=== PATIENT | female | born 1960 | race Caucasian/White ===

== ENCOUNTER 2019-04-04 12:04 | Day surgery (SDC) | payer MEDICARE ==
[2019-04-04] MEDS ORDERED: Marcaine 0.5% SDV 10 ML IJ ONE (12:05)
[2019-04-04] MEDS ORDERED: Depo-Medrol 40 MG/ML IM ONE (12:05)
[2019-04-04] MEDS ORDERED: DIPRIVAN 200 MG/20 ML IV ONE (13:01)
[2019-04-04] MEDS ORDERED: Ketamine HCl 50 MG/ML ONE (13:01)
[2019-04-04] MEDS ORDERED: Lactated Ringers 1,000 ML IV ONE (13:46)
--- NOTE | 2019-04-04 14:49 | XRAY ---
Indication: Right greater trochanter injection. Intraoperative fluoroscopy was provided for 12 seconds. Single digital spot image submitted for interpretation demonstrates needle tip projecting just lateral to the right greater trochanter. Small amount of contrast injected for needle tip placement. Correlate with intraoperative findings/report.
--- NOTE | 2019-04-04 14:52 | XRAY ---
Indication: Left greater trochanter injection. Intraoperative fluoroscopy was provided for 75 seconds. Single digital spot image submitted for interpretation demonstrates needle tip projecting just lateral to the left greater trochanter. Small amount of contrast injected for needle tip placement. Correlate with intraoperative findings/report.
--- NOTE | 2019-04-04 14:52 | XRAY ---
12 seconds fluoroscopy time in surgery right greater trochanter injection.
--- NOTE | 2019-04-04 14:52 | XRAY ---
75 seconds fluoroscopy time in surgery for left greater trochanter injection.
== END 2019-04-04 13:22 | disposition home or self-care (01) ==
LOC: SDC-PAIN 12:04
PROVIDERS: ATTEND Psychiatry & Neurology Pain Medicine
DX: M70.62 Trochanteric bursitis, left hip (principal); M70.61 Trochanteric bursitis, right hip; G47.30 Sleep apnea, unspecified; K44.9 Diaphragmatic hernia without obstruction or gangrene; Q24.9 Congenital malformation of heart, unspecified; F32.9 Major depressive disorder, single episode, unspecified; Z79.899 Other long term (current) drug therapy
CPT/HCPCS: 20610; 73501; 77002; J1030; J2704; Q9966

== ENCOUNTER 2019-10-03 11:16 | Day surgery (SDC) | payer MEDICARE ==
[2019-10-03] MEDS ORDERED: Depo-Medrol 40 MG/ML IM ONE (11:17)
[2019-10-03] MEDS ORDERED: Xylocaine 1% Vial 30 ML PF IJ ONE (11:17)
[2019-10-03] MEDS ORDERED: Marcaine 0.5% SDV 10 ML IJ ONE (11:17)
[2019-10-03] MEDS ORDERED: Decadron 4 MG INJ IV ONE (11:17)
[2019-10-03] MEDS ORDERED: Ketamine HCl 50 MG/ML ONE (12:22)
[2019-10-03] MEDS ORDERED: DIPRIVAN 200 MG/20 ML IV ONE (12:22)
[2019-10-03] MEDS ORDERED: TORAdol 30 mg Injection ONE (12:36)
[2019-10-03] MEDS ORDERED: Lactated Ringers 1,000 ML IV ONE (13:11)
--- NOTE | 2019-10-03 13:29 | XRAY ---
Indication: Right piriformis muscle and greater trochanter injection. Intraoperative fluoroscopy was provided for 25 seconds. 3 digital spot images submitted for interpretation demonstrate posterior needle tip projecting over the expected right piriformis muscle and a second needle tip adjacent to the right greater trochanter. Small amount of contrast injected for both needle tip placement. Correlate with intraoperative findings/report.
--- NOTE | 2019-10-03 13:43 | XRAY ---
25 seconds fluoroscopy time in surgery for right piriformis muscle and greater trochanter injections.
== END 2019-10-03 12:45 | disposition home or self-care (01) ==
LOC: SDC-PAIN 11:16
PROVIDERS: ATTEND Psychiatry & Neurology Pain Medicine
DX: M79.18 Myalgia, other site (principal); M70.61 Trochanteric bursitis, right hip; M79.10 Myalgia, unspecified site; G47.30 Sleep apnea, unspecified; Q24.9 Congenital malformation of heart, unspecified; Z79.899 Other long term (current) drug therapy
CPT/HCPCS: 20552; 20610; 73502; 77002; J1030; J1100; J1885; J2001; J2704; Q9966

== ENCOUNTER 2019-10-24 09:46 | Day surgery (SDC) | payer MEDICARE ==
[2019-10-24] MEDS ORDERED: Depo-Medrol 40 MG/ML IM ONE (09:47)
[2019-10-24] MEDS ORDERED: Sodium Chloride 0.9(Preservative Free) 10 ML IJ ONE (09:47)
[2019-10-24] MEDS ORDERED: DIPRIVAN 200 MG/20 ML IV ONE (11:39)
[2019-10-24] MEDS ORDERED: Ketamine HCl 50 MG/ML ONE (11:39)
[2019-10-24] MEDS ORDERED: TORAdol 30 mg Injection ONE (11:45)
--- NOTE | 2019-10-24 12:30 | XRAY ---
20 seconds fluoroscopy time in surgery for right L4-S1 transforaminal DENISE.
--- NOTE | 2019-10-24 12:40 | XRAY ---
Indication: Right L4-S1 transforaminal DENISE. Intraoperative fluoroscopy was provided for 20 seconds. 3 digital spot images submitted for interpretation demonstrates posterior needle tips projecting over the expected course of the right L4 and L5 nerve roots. Small amount of contrast injected for needle tip placement. Correlate with intraoperative findings/report.
[2019-10-24] MEDS ORDERED: Lactated Ringers 1,000 ML IV ONE (13:38)
== END 2019-10-24 11:53 | disposition home or self-care (01) ==
LOC: SDC-PAIN 09:46
PROVIDERS: ATTEND Psychiatry & Neurology Pain Medicine
DX: M54.16 Radiculopathy, lumbar region (principal); G47.30 Sleep apnea, unspecified; K44.9 Diaphragmatic hernia without obstruction or gangrene; M16.0 Bilateral primary osteoarthritis of hip; M47.9 Spondylosis, unspecified; Q24.9 Congenital malformation of heart, unspecified; Z79.899 Other long term (current) drug therapy
CPT/HCPCS: 64483; 64484; 72100; 77003; J1030; J1885; J2704; Q9966

== ENCOUNTER 2020-02-13 11:10 | Day surgery (SDC) | payer MEDICARE ==
[2020-02-13] MEDS ORDERED: Xylocaine 1% Vial 30 ML PF IJ ONE (11:11)
[2020-02-13] MEDS ORDERED: Sodium Chloride 0.9% 10 ML FLUSH Syringe IJ ONE (11:11)
[2020-02-13] MEDS ORDERED: Depo-Medrol 40 MG/ML IM ONE (11:11)
[2020-02-13] MEDS ORDERED: Ketamine HCl 50 MG/ML ONE (13:28)
[2020-02-13] MEDS ORDERED: DIPRIVAN 200 MG/20 ML IV ONE (13:28)
--- NOTE | 2020-02-13 14:29 | XRAY ---
Indication: Lumbar DENISE. Intraoperative fluoroscopy was provided for 13 seconds. 2 digital spot images submitted for interpretation demonstrates midline posterior needle tip just posterior to the at L4-L5 interspace. Small amount of contrast injected for needle tip placement. Correlate with intraoperative findings/report.
[2020-02-13] MEDS ORDERED: Lactated Ringers 1,000 ML IV ONE (14:55)
--- NOTE | 2020-02-13 15:07 | XRAY ---
13 seconds of fluoroscopy was used in surgery for a lumbar DENISE.
== END 2020-02-13 13:51 | disposition home or self-care (01) ==
LOC: SDC-PAIN 11:10
PROVIDERS: ATTEND Psychiatry & Neurology Pain Medicine
DX: M54.16 Radiculopathy, lumbar region (principal); G47.30 Sleep apnea, unspecified; K44.9 Diaphragmatic hernia without obstruction or gangrene; Q24.9 Congenital malformation of heart, unspecified; F41.8 Other specified anxiety disorders; Z79.899 Other long term (current) drug therapy
CPT/HCPCS: 62321; 72100; 77002; J1030; J2001; J2704; Q9966

== ENCOUNTER 2020-03-12 13:02 | Day surgery (SDC) | payer MEDICARE ==
[2020-03-12] MEDS ORDERED: Decadron 4 MG INJ IV ONE (13:03)
[2020-03-12] MEDS ORDERED: Xylocaine 1% Vial 30 ML PF IJ ONE (13:03)
[2020-03-12] MEDS ORDERED: DIPRIVAN 200 MG/20 ML IV ONE (14:30)
[2020-03-12] MEDS ORDERED: Ketamine HCl 50 MG/ML ONE (14:31)
[2020-03-12] MEDS ORDERED: Lactated Ringers 1,000 ML IV ONE (15:54)
--- NOTE | 2020-03-12 16:12 | XRAY ---
Indication: Bilateral piriformis injection. Intraoperative fluoroscopy was provided for 24 seconds. 2 digital spot images submitted for interpretation demonstrates posterior needle tip projecting over the expected left and right piriformis muscles. Small amount of contrast injected for both needle tip placement. Correlate with intraoperative findings/report.
--- NOTE | 2020-03-12 16:14 | XRAY ---
24 seconds fluoroscopy time in surgery for bilateral piriformis muscle injection.
== END 2020-03-12 15:00 | disposition home or self-care (01) ==
LOC: SDC-PAIN 13:02
PROVIDERS: ATTEND Psychiatry & Neurology Pain Medicine
DX: M79.18 Myalgia, other site (principal); G47.30 Sleep apnea, unspecified; K44.9 Diaphragmatic hernia without obstruction or gangrene; M16.0 Bilateral primary osteoarthritis of hip; Q24.9 Congenital malformation of heart, unspecified; F41.8 Other specified anxiety disorders; Z79.899 Other long term (current) drug therapy
CPT/HCPCS: 20552; 72202; 77002; J1100; J2001; J2704; Q9966

== ENCOUNTER 2020-04-02 08:41 | Day surgery (SDC) | payer MEDICARE ==
[2020-04-02] MEDS ORDERED: Depo-Medrol 40 MG/ML IM ONE (08:42)
[2020-04-02] MEDS ORDERED: BUPIVACAINE 0.5% VIAL IJ ONE (08:42)
[2020-04-02] MEDS ORDERED: Ketamine HCl 50 MG/ML ONE (10:38)
[2020-04-02] MEDS ORDERED: DIPRIVAN 200 MG/20 ML IV ONE (10:38)
--- NOTE | 2020-04-02 12:37 | XRAY ---
Indication: Bilateral SI joint injection. Intraoperative fluoroscopy was provided for 16 seconds. 4 digital spot images submitted for interpretation demonstrates posterior needle tip projecting over the inferior left and right SI joints. Correlate with intraoperative findings/report.
--- NOTE | 2020-04-02 12:40 | XRAY ---
Indication: Left greater trochanter bursa injection. Intraoperative fluoroscopy was provided for 21 seconds. Single digital spot image obtained prone demonstrates needle tip just lateral to the left greater trochanter. Small amount of contrast injected for needle tip placement. Correlate with intraoperative findings/report.
--- NOTE | 2020-04-02 12:40 | XRAY ---
Indication: Right greater trochanter bursa injection. Intraoperative fluoroscopy was provided for 13 seconds. Single digital spot image obtained prone demonstrates needle tip just lateral to the right greater trochanter. Small amount of contrast injected for needle tip placement. Correlate with intraoperative findings/report.
--- NOTE | 2020-04-02 12:44 | XRAY ---
21 seconds of fluoroscopy was used in surgery for a left hip greater trochanteric bursa injection.
--- NOTE | 2020-04-02 12:44 | XRAY ---
13 seconds of fluoroscopy was used in surgery for a right hip greater trochanteric bursa injection.
--- NOTE | 2020-04-02 12:54 | XRAY ---
16 seconds of fluoroscopy was used in surgery for bilateral SI joint injections.
[2020-04-02] MEDS ORDERED: Lactated Ringers 1,000 ML IV ONE (14:39)
== END 2020-04-02 11:11 | disposition home or self-care (01) ==
LOC: SDC-PAIN 08:41
PROVIDERS: ATTEND Psychiatry & Neurology Pain Medicine
DX: M46.1 Sacroiliitis, not elsewhere classified (principal); M70.62 Trochanteric bursitis, left hip; M70.61 Trochanteric bursitis, right hip; Z79.899 Other long term (current) drug therapy
CPT/HCPCS: 20610; 27096; 72202; 73501; 77002; J1030; J2704; Q9966; G0260

== ENCOUNTER 2020-06-25 11:45 | Day surgery (SDC) | payer MEDICARE ==
[~2020-06-25 11:45] MED LIST: DIPRIVAN 200 MG/20 ML IV ONE; Ketamine HCl 50 MG/ML ONE
[2020-06-25] MEDS ORDERED: Xylocaine 1% Vial 30 ML PF IJ ONE (11:46)
[2020-06-25] MEDS ORDERED: Decadron 4 MG INJ IV ONE (11:46)
--- NOTE | 2020-06-25 15:17 | XRAY ---
32 seconds fluoroscopy time in surgery for bilateral piriformis muscle injections.
--- NOTE | 2020-06-25 15:17 | XRAY ---
Indication: Bilateral piriformis muscle injection. Intraoperative fluoroscopy was provided for 32 seconds. 2 digital spot images submitted for interpretation demonstrates posterior needle tip projecting over the expected left and right piriformis muscle. Small amount of contrast injected for needle tip placement. Correlate with intraoperative findings/report.
[2020-06-25] MEDS ORDERED: Lactated Ringers 1,000 ML IV ONE (16:50)
== END 2020-06-25 15:00 | disposition home or self-care (01) ==
LOC: SDC-PAIN 11:45
PROVIDERS: ATTEND Psychiatry & Neurology Pain Medicine
DX: M60.88 Other myositis, other site (principal); G47.30 Sleep apnea, unspecified; K44.9 Diaphragmatic hernia without obstruction or gangrene; Q24.9 Congenital malformation of heart, unspecified; F41.8 Other specified anxiety disorders; Z79.899 Other long term (current) drug therapy
CPT/HCPCS: 20552; 72202; 77002; J1100; J2001; J2704; Q9966

== ENCOUNTER 2020-09-24 08:57 | Day surgery (SDC) | payer MEDICARE ==
[2020-09-24] MEDS ORDERED: BUPIVACAINE 0.5% VIAL IJ ONE (08:58)
[2020-09-24] MEDS ORDERED: Depo-Medrol 40 MG/ML IM ONE (08:58)
[2020-09-24] MEDS ORDERED: Xylocaine 1% Vial 30 ML PF IJ ONE (08:58)
[2020-09-24] MEDS ORDERED: Ketamine HCl 50 MG/ML ONE (10:56)
[2020-09-24] MEDS ORDERED: DIPRIVAN 200 MG/20 ML IV ONE (10:56)
--- NOTE | 2020-09-24 12:26 | XRAY ---
Indication: Right shoulder injection. Intraoperative fluoroscopy was provided for 8 seconds. Single digital spot image submitted for interpretation demonstrates needle tip projecting over the right glenohumeral joint superiorly. Small amount of contrast injected for needle tip placement. Correlate with intraoperative findings/report.
--- NOTE | 2020-09-24 12:26 | XRAY ---
Indication: Left shoulder injection. Intraoperative fluoroscopy was provided for 5 seconds. Single digital spot image submitted for interpretation demonstrates needle tip projecting over the left glenohumeral joint superiorly. Small amount of contrast injected for needle tip placement. Correlate with intraoperative findings/report.
--- NOTE | 2020-09-24 12:28 | XRAY ---
5 seconds of fluoroscopy was used in surgery for a left shoulder intra-articular injection.
--- NOTE | 2020-09-24 12:28 | XRAY ---
8 seconds of fluoroscopy was used in surgery for a right shoulder intra-articular injection.
[2020-09-24] MEDS ORDERED: Lactated Ringers 1,000 ML IV ONE (15:54)
== END 2020-09-24 11:27 | disposition home or self-care (01) ==
LOC: SDC-PAIN 08:57
PROVIDERS: ATTEND Psychiatry & Neurology Pain Medicine
DX: M19.012 Primary osteoarthritis, left shoulder (principal); M19.011 Primary osteoarthritis, right shoulder; M79.18 Myalgia, other site; R73.03 Prediabetes; G47.30 Sleep apnea, unspecified; Q24.9 Congenital malformation of heart, unspecified; K44.9 Diaphragmatic hernia without obstruction or gangrene; F41.8 Other specified anxiety disorders; Z79.899 Other long term (current) drug therapy
CPT/HCPCS: 20553; 20610; 73030; 77002; 82947; J1030; J2001; J2704; Q9966

== ENCOUNTER 2020-10-29 08:18 | Day surgery (SDC) | payer MEDICARE ==
[2020-10-29] MEDS ORDERED: Xylocaine 1% Vial 30 ML PF IJ ONE (08:19)
[2020-10-29] MEDS ORDERED: Decadron 4 MG INJ IV ONE (08:19)
[2020-10-29] MEDS ORDERED: DIPRIVAN 200 MG/20 ML IV ONE (09:56)
[2020-10-29] MEDS ORDERED: Ketamine HCl 50 MG/ML ONE (09:56)
--- NOTE | 2020-10-29 10:56 | XRAY ---
Indication: Bilateral piriformis muscle injection. Intraoperative fluoroscopy provided for 32 seconds. 2 digital spot images submitted for interpretation demonstrates posterior needle tip projecting over the expect left and right piriformis muscles. Small amount of contrast injected for needle tip placement. Correlate with intraoperative findings/report.
--- NOTE | 2020-10-29 12:00 | XRAY ---
32 seconds fluoroscopy time in surgery for bilateral piriformis muscle injection.
[2020-10-29] MEDS ORDERED: Lactated Ringers 1,000 ML IV ONE (14:58)
== END 2020-10-29 10:22 | disposition home or self-care (01) ==
LOC: SDC-PAIN 08:18
PROVIDERS: ATTEND Psychiatry & Neurology Pain Medicine
DX: M79.18 Myalgia, other site (principal); G47.30 Sleep apnea, unspecified; M16.0 Bilateral primary osteoarthritis of hip; K44.9 Diaphragmatic hernia without obstruction or gangrene; F32.9 Major depressive disorder, single episode, unspecified; R73.03 Prediabetes; Q24.9 Congenital malformation of heart, unspecified; Z79.899 Other long term (current) drug therapy
CPT/HCPCS: 20552; 72202; 77002; 82947; J1100; J2001; J2704; Q9966

== ENCOUNTER 2020-12-24 12:39 | Day surgery (SDC) | payer MEDICARE ==
[2020-12-24] MEDS ORDERED: Depo-Medrol 40 MG/ML IM ONE (12:40)
[2020-12-24] MEDS ORDERED: BUPIVACAINE 0.5% VIAL IJ ONE (12:40)
[2020-12-24] MEDS ORDERED: DIPRIVAN 200 MG/20 ML IV ONE (14:19)
[2020-12-24] MEDS ORDERED: Lactated Ringers 1,000 ML IV ONE (16:41)
== END 2020-12-24 14:42 | disposition home or self-care (01) ==
LOC: SDC-PAIN 12:39
PROVIDERS: ATTEND Psychiatry & Neurology Pain Medicine
DX: M16.11 Unilateral primary osteoarthritis, right hip (principal); R73.03 Prediabetes; G47.30 Sleep apnea, unspecified; K44.9 Diaphragmatic hernia without obstruction or gangrene; Q24.9 Congenital malformation of heart, unspecified; Z79.899 Other long term (current) drug therapy
CPT/HCPCS: 20610; 73501; 77002; 82947; J1030; J2704; Q9966

== ENCOUNTER 2021-02-18 09:15 | Day surgery (SDC) | payer MEDICARE ==
[2021-02-18] MEDS ORDERED: Xylocaine 1% Vial 30 ML PF IJ ONE (09:16)
[2021-02-18] MEDS ORDERED: Depo-Medrol 40 MG/ML IM ONE (09:16)
[2021-02-18] MEDS ORDERED: BUPIVACAINE 0.5% VIAL IJ ONE (09:16)
[2021-02-18] MEDS ORDERED: DIPRIVAN 200 MG/20 ML IV ONE (11:03)
[2021-02-18] MEDS ORDERED: Lactated Ringers 1,000 ML IV ONE (16:28)
--- NOTE | 2021-02-19 11:33 | XRAY ---
55 seconds total fluoroscopy time in surgery for bilateral greater trochanteric injections.
== END 2021-02-18 11:46 | disposition home or self-care (01) ==
LOC: SDC-PAIN 09:15
PROVIDERS: ATTEND Psychiatry & Neurology Pain Medicine
DX: M16.11 Unilateral primary osteoarthritis, right hip (principal); M70.62 Trochanteric bursitis, left hip; M70.61 Trochanteric bursitis, right hip; F41.9 Anxiety disorder, unspecified; F32.9 Major depressive disorder, single episode, unspecified; G47.30 Sleep apnea, unspecified; R73.03 Prediabetes; Z79.899 Other long term (current) drug therapy
CPT/HCPCS: 20610; 73521; 77002; 82947; J1030; J2001; J2704; Q9966

== ENCOUNTER 2021-03-25 10:01 | Day surgery (SDC) | payer MEDICARE ==
[2021-03-25] MEDS ORDERED: Decadron 4 MG INJ IV ONE (10:02)
[2021-03-25] MEDS ORDERED: Xylocaine 1% Vial 30 ML PF IJ ONE (10:02)
[2021-03-25] MEDS ORDERED: Lactated Ringers 1,000 ML IV ONE (11:43)
[2021-03-25] MEDS ORDERED: DIPRIVAN 200 MG/20 ML IV ONE (12:18)
--- NOTE | 2021-03-25 13:37 | XRAY ---
18 seconds fluoroscopy time in surgery for bilateral piriformis muscle injections.
--- NOTE | 2021-03-25 13:44 | XRAY ---
Indication: Bilateral piriformis injections. Intraoperative fluoroscopy provided for 18 seconds. 2 digital spot image submitted for interpretation demonstrates posterior needle tip projecting over the expected left and right piriformis muscles. Small amount of contrast injected for needle tip placement. Correlate with intraoperative findings/report.
== END 2021-03-25 12:41 | disposition home or self-care (01) ==
LOC: SDC-PAIN 10:01
PROVIDERS: ATTEND Psychiatry & Neurology Pain Medicine
DX: M60.852 Other myositis, left thigh (principal); M60.851 Other myositis, right thigh; E11.9 Type 2 diabetes mellitus without complications; Z79.899 Other long term (current) drug therapy
CPT/HCPCS: 20552; 72202; 77002; 82947; J1100; J2001; J2704; Q9966

== ENCOUNTER 2021-05-06 09:50 | Day surgery (SDC) | payer MEDICARE ==
[2021-05-06] MEDS ORDERED: Depo-Medrol 40 MG/ML IM ONE (09:51)
[2021-05-06] MEDS ORDERED: Xylocaine 1% Vial 30 ML PF IJ ONE (09:51)
[2021-05-06] MEDS ORDERED: BUPIVACAINE 0.5% VIAL IJ ONE (09:51)
[2021-05-06] MEDS ORDERED: DIPRIVAN 200 MG/20 ML IV ONE (10:29)
[2021-05-06] MEDS ORDERED: Lactated Ringers 1,000 ML IV ONE (10:43)
--- NOTE | 2021-05-06 12:22 | XRAY ---
Indication: Bilateral SI joint injections. Intraoperative fluoroscopy provided for 17 seconds. 4 digital spot image submitted for interpretation demonstrates posterior needle tip projecting over the inferior left and right SI joint. Correlate with intraoperative findings/report.
--- NOTE | 2021-05-06 13:39 | XRAY ---
17 seconds of fluoroscopy was used in surgery for bilateral SI joint injections.
== END 2021-05-06 11:01 | disposition home or self-care (01) ==
LOC: SDC-PAIN 09:50
PROVIDERS: ATTEND Psychiatry & Neurology Pain Medicine
DX: M46.1 Sacroiliitis, not elsewhere classified (principal); M79.18 Myalgia, other site; R73.03 Prediabetes; Z79.899 Other long term (current) drug therapy
CPT/HCPCS: 20553; 27096; 72202; 77002; 82947; G0260; J1030; J2001; J2704

== ENCOUNTER 2021-06-03 13:27 | Day surgery (SDC) | payer MEDICARE ==
[2021-06-03] MEDS ORDERED: Decadron 4 MG INJ IV ONE (13:28)
[2021-06-03] MEDS ORDERED: Xylocaine 1% Vial 30 ML PF IJ ONE (13:28)
[2021-06-03] MEDS ORDERED: Lactated Ringers 1,000 ML IV ONE (15:24)
[2021-06-03] MEDS ORDERED: DIPRIVAN 200 MG/20 ML IV ONE (15:41)
--- NOTE | 2021-06-03 20:39 | XRAY ---
Indication: Bilateral piriformis injection. Intraoperative fluoroscopy provided for 28 seconds. 2 digital spot image submitted for interpretation demonstrates posterior needle tip projecting over the expected left and right piriformis muscles. Small amount of contrast injected for both needle tip placement. Correlate with intraoperative findings/report.
--- NOTE | 2021-06-04 08:42 | XRAY ---
28 seconds fluoroscopy time in surgery for bilateral piriformis muscle injections.
== END 2021-06-03 16:10 | disposition home or self-care (01) ==
LOC: SDC-PAIN 13:27
PROVIDERS: ATTEND Psychiatry & Neurology Pain Medicine
DX: M79.18 Myalgia, other site (principal); Z79.899 Other long term (current) drug therapy
CPT/HCPCS: 20553; 72202; 77002; J1100; J2001; J2704; Q9966

== ENCOUNTER 2021-08-19 11:44 | Day surgery (SDC) | payer MEDICARE ==
[2021-08-19] MEDS ORDERED: Decadron 4 MG INJ IV ONE (11:45)
[2021-08-19] MEDS ORDERED: Depo-Medrol 40 MG/ML IM ONE (11:45)
[2021-08-19] MEDS ORDERED: Xylocaine 1% Vial 30 ML PF IJ ONE (11:45)
[2021-08-19] MEDS ORDERED: BUPIVACAINE 0.5% VIAL IJ ONE (11:45)
[2021-08-19] MEDS ORDERED: Lactated Ringers 1,000 ML IV ONE (14:42)
[2021-08-19] MEDS ORDERED: DIPRIVAN 200 MG/20 ML IV ONE (15:01)
--- NOTE | 2021-08-19 16:48 | XRAY ---
Indication: Right piriformis injection. Intraoperative fluoroscopy provided for 11 seconds. Single digital spot image submitted for interpretation demonstrates posterior needle tip projecting over the expected right piriformis muscle. Small amount of contrast injected for needle tip placement. Correlate with intraoperative findings/report.
--- NOTE | 2021-08-19 16:50 | XRAY ---
Indication: Bilateral greater trochanter bursa injection. Intraoperative fluoroscopy provided for 22 seconds. 3 digital spot image submitted for interpretation demonstrates needle tip lateral to the left and right greater trochanters. Small amount of contrast injected for both needle tip placement. Correlate with intraoperative findings/report.
--- NOTE | 2021-08-19 16:50 | XRAY ---
11 seconds of fluoroscopy was used in surgery for a right piriformis injection.
--- NOTE | 2021-08-19 17:00 | XRAY ---
22 seconds of fluoroscopy was used in surgery for bilateral greater trochanteric bursa injections.
== END 2021-08-19 15:30 | disposition home or self-care (01) ==
LOC: SDC-PAIN 11:44
PROVIDERS: ATTEND Psychiatry & Neurology Pain Medicine
DX: M70.62 Trochanteric bursitis, left hip (principal); M79.18 Myalgia, other site; Z79.899 Other long term (current) drug therapy
CPT/HCPCS: 20552; 20610; 72020; 73521; 77002; 82947; J1030; J1100; J2001; J2704; Q9966

== ENCOUNTER 2021-10-07 10:47 | Day surgery (SDC) | payer MEDICARE ==
[2021-10-07] MEDS ORDERED: Sodium Chloride 0.9% 10 ML FLUSH Syringe IJ ONE (10:48)
[2021-10-07] MEDS ORDERED: Depo-Medrol 40 MG/ML IM ONE (10:48)
[2021-10-07] MEDS ORDERED: Lactated Ringers 1,000 ML IV ONE (13:55)
[2021-10-07] MEDS ORDERED: DIPRIVAN 200 MG/20 ML IV ONE (13:59)
--- NOTE | 2021-10-07 15:14 | XRAY ---
Indication: Right L4-S1 transforaminal DENISE. Intraoperative fluoroscopy provided for 15 seconds. 4 digital spot image submitted for interpretation demonstrates posterior needle tips projecting over the expected right L4 and L5 nerve roots. Small amount of contrast injected for needle tip placement. Correlate with intraoperative findings/report.
--- NOTE | 2021-10-07 15:18 | XRAY ---
15 seconds fluoroscopy time in surgery for right L4-S1 transforaminal DENISE.
== END 2021-10-07 14:25 | disposition home or self-care (01) ==
LOC: SDC-PAIN 10:47
PROVIDERS: ATTEND Psychiatry & Neurology Pain Medicine
DX: M54.16 Radiculopathy, lumbar region (principal); Z79.899 Other long term (current) drug therapy
CPT/HCPCS: 64479; 64480; 72100; 77003; 82947; J1030; J2704; Q9966

== ENCOUNTER 2021-11-19 10:33 | Day surgery (SDC) | payer MEDICARE ==
[2021-11-19] MEDS ORDERED: BUPIVACAINE 0.5% VIAL IJ ONE (10:34)
[2021-11-19] MEDS ORDERED: Depo-Medrol 40 MG/ML IM ONE (10:34)
[2021-11-19] MEDS ORDERED: DIPRIVAN 200 MG/20 ML IV ONE (12:34)
--- NOTE | 2021-11-19 13:41 | XRAY ---
Indication: Right greater trochanter injection. Intraoperative fluoroscopy provided for 10 seconds. Single digital spot image submitted for interpretation demonstrates needle tip projecting lateral to the right greater trochanter. Small amount of contrast injected for needle tip placement. Correlate with intraoperative findings/report.
[2021-11-19] MEDS ORDERED: Lactated Ringers 1,000 ML IV ONE (13:55)
--- NOTE | 2021-11-19 15:33 | XRAY ---
10 seconds of fluoroscopy was used in surgery for a right greater trochanteric bursa injection.
== END 2021-11-19 13:01 | disposition home or self-care (01) ==
LOC: SDC-PAIN 10:33
PROVIDERS: ATTEND Psychiatry & Neurology Pain Medicine
DX: M70.61 Trochanteric bursitis, right hip (principal); M70.51 Other bursitis of knee, right knee; Z79.899 Other long term (current) drug therapy
CPT/HCPCS: 20610; 73501; 77002; J1030; J2704; Q9966

== ENCOUNTER 2021-12-16 07:58 | Day surgery (SDC) | payer MEDICARE ==
[2021-12-16] MEDS ORDERED: Decadron 4 MG INJ IV ONE (07:59)
[2021-12-16] MEDS ORDERED: Xylocaine 1% Vial 30 ML PF IJ ONE (07:59)
[2021-12-16] MEDS ORDERED: Lactated Ringers 1,000 ML IV ONE (09:33)
[2021-12-16] MEDS ORDERED: DIPRIVAN 200 MG/20 ML IV ONE (10:10)
--- NOTE | 2021-12-16 11:37 | XRAY ---
42 seconds of fluoroscopy was used in surgery for a bilateral piriformis injection.
--- NOTE | 2021-12-16 11:38 | XRAY ---
Indication: Bilateral piriformis muscle injections. Intraoperative fluoroscopy provided for 42 seconds. 2 digital spot image submitted for interpretation demonstrates posterior needle tip projecting over the expected left and right piriformis muscles. Small amount of contrast injected for needle tip placement. Correlate with intraoperative findings/report.
== END 2021-12-16 10:40 | disposition home or self-care (01) ==
LOC: SDC-PAIN 07:58
PROVIDERS: ATTEND Psychiatry & Neurology Pain Medicine
DX: M79.18 Myalgia, other site (principal); Z79.899 Other long term (current) drug therapy
CPT/HCPCS: 20553; 72202; 77002; J1100; J2001; J2704; Q9966

== ENCOUNTER 2022-02-17 13:29 | Day surgery (SDC) | payer MEDICARE ==
[2022-02-17] MEDS ORDERED: Depo-Medrol 40 MG/ML IM ONE (13:30)
[2022-02-17] MEDS ORDERED: LIDOCAINE HCL 1% 50 MG/5 ML VL PF IJ ONE (13:30)
[2022-02-17] MEDS ORDERED: Marcaine Mpf 0.5% Vial 30 Ml IJ ONE (13:30)
[2022-02-17] MEDS ORDERED: Decadron 4 MG INJ IV ONE (13:30)
[2022-02-17] MEDS ORDERED: DIPRIVAN 200 MG/20 ML IV ONE (14:39)
[2022-02-17] MEDS ORDERED: Xylocaine-Mpf 2% 5 Ml Vial ONE (14:39)
[2022-02-17] MEDS ORDERED: Lactated Ringers 1,000 ML IV ONE (15:14)
--- NOTE | 2022-02-17 15:42 | XRAY ---
Indication: Bilateral piriformis muscle injection. Intraoperative fluoroscopy provided for 21 seconds. 2 digital spot image submitted for interpretation demonstrates posterior needle tip projecting over the left and right piriformis muscle. Small amount of contrast injected for needle tip placement. Correlate with intraoperative findings/report.
--- NOTE | 2022-02-17 15:56 | XRAY ---
21 seconds fluoroscopy time used in surgery for bilateral piriformis injections.
== END 2022-02-17 15:09 | disposition home or self-care (01) ==
LOC: SDC-PAIN 13:29
PROVIDERS: ATTEND Psychiatry & Neurology Pain Medicine
DX: M79.18 Myalgia, other site (principal); M70.51 Other bursitis of knee, right knee; Z79.899 Other long term (current) drug therapy
CPT/HCPCS: 20552; 20610; 72170; 77002; J1030; J1100; J2001; J2704; Q9966

== ENCOUNTER 2022-05-26 11:18 | Day surgery (SDC) | payer MEDICARE ==
[2022-05-26] MEDS ORDERED: Depo-Medrol 40 MG/ML IM ONE (11:19)
[2022-05-26] MEDS ORDERED: Sodium Chloride 0.9(Preservative Free) 10 ML IJ ONE (11:19)
[2022-05-26] MEDS ORDERED: XYLOCAINE-MPF 1% 5ML SDV IJ ONE (11:19)
[2022-05-26] MEDS ORDERED: Versed 2 MG/2 ML Injection ONE (11:38)
[2022-05-26] MEDS ORDERED: DIPRIVAN 200 MG/20 ML IV ONE (13:24)
[2022-05-26] MEDS ORDERED: Xylocaine-Mpf 2% 5 Ml Vial ONE (13:28)
[2022-05-26] MEDS ORDERED: Lactated Ringers 1,000 ML IV ONE (13:39)
--- NOTE | 2022-05-26 19:25 | XRAY ---
Indication: Lumbar DENISE. Intraoperative fluoroscopy provided for 23 seconds. 4 digital spot image submitted for interpretation demonstrates posterior needle tip projecting just posterior to L4-L5 interspace. Small amount of contrast injected for needle tip placement. Correlate with intraoperative findings/report.
--- NOTE | 2022-05-26 19:34 | XRAY ---
23 seconds of fluoroscopy was used for surgery for a lumbar DENISE.
== END 2022-05-26 14:00 | disposition home or self-care (01) ==
LOC: SDC-PAIN 11:18
PROVIDERS: ATTEND Psychiatry & Neurology Pain Medicine
DX: M54.16 Radiculopathy, lumbar region (principal); Z79.899 Other long term (current) drug therapy
CPT/HCPCS: 62323; 72100; 77003; J1030; J2250; J2704; Q9966

== ENCOUNTER 2022-08-12 10:37 | Day surgery (SDC) | payer MEDICARE ==
[2022-08-12] MEDS ORDERED: Decadron 4 MG INJ IV ONE (10:38)
[2022-08-12] MEDS ORDERED: LIDOCAINE HCL 1% 50 MG/5 ML VL PF IJ ONE (10:38)
[2022-08-12] MEDS ORDERED: Versed 2 MG/2 ML Injection ONE ×2 (12:01→12:27)
[2022-08-12] MEDS ORDERED: DIPRIVAN 200 MG/20 ML IV ONE (13:08)
[2022-08-12] MEDS ORDERED: Lactated Ringers 1,000 ML IV ONE (13:31)
--- NOTE | 2022-08-12 15:01 | XRAY ---
28 seconds fluoroscopy time in surgery for injections of both piriformis muscles.
--- NOTE | 2022-08-12 15:01 | XRAY ---
Indication: Bilateral piriformis muscle injection. Intraoperative fluoroscopy provided for 28 seconds. 2 digital spot images submitted for interpretation demonstrates posterior needle tip projecting over the left and right piriformis muscle. Small amount of contrast injected for both needle tip placement. Correlate with intraoperative findings/report.
== END 2022-08-12 13:40 | disposition home or self-care (01) ==
LOC: SDC-PAIN 10:37
PROVIDERS: ATTEND Psychiatry & Neurology Pain Medicine
DX: M79.18 Myalgia, other site (principal)
CPT/HCPCS: 20553; 72170; 77002; J1100; J2001; J2250; J2704; Q9966

== ENCOUNTER 2022-09-15 12:04 | Day surgery (SDC) | payer MEDICARE ==
[2022-09-15] MEDS ORDERED: LIDOCAINE HCL 1% 50 MG/5 ML VL PF IJ ONE (12:05)
[2022-09-15] MEDS ORDERED: Depo-Medrol 40 MG/ML IM ONE (12:05)
[2022-09-15] MEDS ORDERED: BUPIVACAINE 0.5% VIAL IJ ONE (12:05)
[2022-09-15] MEDS ORDERED: Decadron 4 MG INJ IV ONE (12:05)
[2022-09-15] MEDS ORDERED: Versed 2 MG/2 ML Injection ONE (13:38)
[2022-09-15] MEDS ORDERED: DIPRIVAN 200 MG/20 ML IV ONE (14:59)
[2022-09-15] MEDS ORDERED: Lactated Ringers 1,000 ML IV ONE (15:52)
--- NOTE | 2022-09-15 16:23 | XRAY ---
Indication: Right greater trochanter bursa and bilateral piriformis injections. Intraoperative fluoroscopy provided for 39 seconds. 5 digital spot images obtained prone submitted for interpretation demonstrates posterior needle tips projecting over the left and right piriformis muscles. Additional needle tip projects lateral to the right greater trochanter. Small amount of contrast injected for all needle tip placement. Correlate with intraoperative findings/report.
--- NOTE | 2022-09-15 16:30 | XRAY ---
39 seconds of fluoroscopy was used in surgery for a right greater trochanteric bursa and bilateral piriformis muscle injection.
== END 2022-09-15 15:10 | disposition home or self-care (01) ==
LOC: SDC-PAIN 12:04
PROVIDERS: ATTEND Psychiatry & Neurology Pain Medicine
DX: M79.18 Myalgia, other site (principal); M70.61 Trochanteric bursitis, right hip; Z79.899 Other long term (current) drug therapy
CPT/HCPCS: 20552; 20610; 73501; 77002; J1030; J1100; J2001; J2250; J2704; Q9966

== ENCOUNTER 2023-02-16 12:04 | Day surgery (SDC) | payer MEDICARE ==
[2023-02-16] MEDS ORDERED: Decadron 4 MG INJ IV ONE (12:05)
[2023-02-16] MEDS ORDERED: Sodium Chloride 0.9(Preservative Free) 10 ML IJ ONE (12:05)
[2023-02-16] MEDS ORDERED: Depo-Medrol 40 MG/ML IM ONE (12:05)
[2023-02-16] MEDS ORDERED: LIDOCAINE HCL 1% 50 MG/5 ML VL PF IJ ONE (12:05)
[2023-02-16] MEDS ORDERED: Versed 2 MG/2 ML Injection ONE (13:50)
[2023-02-16] MEDS ORDERED: DIPRIVAN 200 MG/20 ML IV ONE (14:31)
[2023-02-16] MEDS ORDERED: Lactated Ringers 1,000 ML IV ONE (15:05)
--- NOTE | 2023-02-16 16:39 | XRAY ---
Indication: Right piriformis injection. Intraoperative fluoroscopy provided for 14 seconds. Single digital spot images submitted for interpretation demonstrates posterior needle tip projecting over the expected right piriformis muscle. Small amount of contrast injected for needle tip placement. Correlate with intraoperative findings/report.
--- NOTE | 2023-02-16 16:39 | XRAY ---
Indication: Right L4-S1 transforaminal DENISE. Intraoperative fluoroscopy provided for 24 seconds. 4 digital spot images submitted for interpretation demonstrates posterior needle tips projecting over the expected right L4 and L5 nerve roots. Small amount of contrast injected for needle tip placement. Correlate with intraoperative findings/report.
--- NOTE | 2023-02-16 17:13 | XRAY ---
24 seconds of fluoroscopy was used in surgery for a right L4-S1 transforaminal DENISE.
--- NOTE | 2023-02-16 17:13 | XRAY ---
14 seconds of fluoroscopy was used in surgery for a right piriformis injection.
== END 2023-02-16 15:00 | disposition home or self-care (01) ==
LOC: SDC-PAIN 12:04
PROVIDERS: ATTEND Psychiatry & Neurology Pain Medicine
DX: M54.16 Radiculopathy, lumbar region (principal); M79.18 Myalgia, other site; Z79.899 Other long term (current) drug therapy
CPT/HCPCS: 20552; 64483; 64484; 72100; 72170; 77002; 77003; J1030; J1100; J2001; J2250; J2704; Q9966

== ENCOUNTER 2023-06-22 13:48 | Day surgery (SDC) | payer MEDICARE ==
[2023-06-22] MEDS ORDERED: LIDOCAINE HCL 2% 100 MG/5 ML IJ ONE (13:49)
[2023-06-22] MEDS ORDERED: Depo-Medrol 40 MG/ML IM ONE (13:49)
[2023-06-22] MEDS ORDERED: DIPRIVAN 200 MG/20 ML IV ONE (16:21)
[2023-06-22] MEDS ORDERED: Lactated Ringers 1,000 ML IV ONE (17:26)
--- NOTE | 2023-06-22 17:29 | XRAY ---
Indication: Bilateral L4-S1 MBB. Intraoperative fluoroscopy provided for 15 seconds. Single digital spot image submitted for interpretation demonstrates posterior needle tips projecting over the expected left and right L4-S1 nerve roots. Correlate with intraoperative findings/report.
--- NOTE | 2023-06-22 17:31 | XRAY ---
15 seconds of fluoroscopy was used in surgery for a bilateral L4-S1 MBB.
== END 2023-06-22 16:50 | disposition home or self-care (01) ==
LOC: SDC-PAIN 13:48
PROVIDERS: ATTEND Psychiatry & Neurology Pain Medicine
DX: M47.816 Spondylosis without myelopathy or radiculopathy, lumbar region (principal)
CPT/HCPCS: 64493; 64494; 72020; 77002; J1030; J2704

== ENCOUNTER 2023-09-28 11:36 | Day surgery (SDC) | payer MEDICARE ==
[2023-09-28] MEDS ORDERED: BUPIVACAINE 0.5% VIAL IJ ONE (11:37)
[2023-09-28] MEDS ORDERED: Depo-Medrol 40 MG/ML IM ONE (11:37)
[2023-09-28] MEDS ORDERED: Versed 2 MG/2 ML Injection ONE ×2 (13:57→14:56)
[2023-09-28] MEDS ORDERED: DIPRIVAN 200 MG/20 ML IV ONE (14:56)
[2023-09-28] MEDS ORDERED: Lactated Ringers 1,000 ML IV ONE (15:30)
--- NOTE | 2023-09-28 16:40 | XRAY ---
Indication: Bilateral L4-S1 MBB. Intraoperative fluoroscopy provided for 9 seconds. Single digital spot image submitted for interpretation demonstrates posterior needle tips projecting over the expected left and right L4-S1 nerve roots. Correlate with intraoperative findings/report.
--- NOTE | 2023-09-28 16:42 | XRAY ---
9 seconds of fluoroscopy was used in surgery for a bilateral L4-S1 MBB.
== END 2023-09-28 15:30 | disposition home or self-care (01) ==
LOC: SDC-PAIN 11:36
PROVIDERS: ATTEND Psychiatry & Neurology Pain Medicine
DX: M47.816 Spondylosis without myelopathy or radiculopathy, lumbar region (principal)
CPT/HCPCS: 64493; 64494; 72020; 77002; J1030; J2250; J2704

== ENCOUNTER 2023-10-26 13:21 | Day surgery (SDC) | payer MEDICARE ==
[2023-10-26] MEDS ORDERED: Depo-Medrol 40 MG/ML IM ONE (13:22)
[2023-10-26] MEDS ORDERED: XYLOCAINE-MPF 1% 5ML SDV IJ ONE (13:22)
[2023-10-26] MEDS ORDERED: BUPIVACAINE 0.5% VIAL IJ ONE (13:22)
[2023-10-26] MEDS ORDERED: Lactated Ringers 1,000 ML IV ONE (14:27)
[2023-10-26] MEDS ORDERED: DIPRIVAN 200 MG/20 ML IV ONE (14:38)
--- NOTE | 2023-10-26 15:11 | XRAY ---
Indication: Right L4-S1 RFA. Intraoperative fluoroscopy provided for 24 seconds. 4 digital spot images submitted for interpretation demonstrates posterior needle tips projecting over the expected right L4-S1 nerve roots. Correlate with intraoperative findings/report.
--- NOTE | 2023-10-26 15:13 | XRAY ---
24 seconds of fluoroscopy was used in surgery for a right L4-S1 RFA.
== END 2023-10-26 15:16 | disposition home or self-care (01) ==
LOC: SDC-PAIN 13:21
PROVIDERS: ATTEND Psychiatry & Neurology Pain Medicine
DX: M47.816 Spondylosis without myelopathy or radiculopathy, lumbar region (principal)
CPT/HCPCS: 64635; 64636; 72100; 77002; J1030; J2704

== ENCOUNTER 2023-12-14 12:45 | Day surgery (SDC) | payer MEDICARE ==
[2023-12-14] MEDS ORDERED: BUPIVACAINE 0.5% VIAL IJ ONE (12:46)
[2023-12-14] MEDS ORDERED: Depo-Medrol 40 MG/ML IM ONE (12:46)
[2023-12-14] MEDS ORDERED: LIDOCAINE HCL 1% 50 MG/5 ML VL PF IJ ONE (12:46)
[2023-12-14] MEDS ORDERED: Zofran 4 MG/2 ML VIAL ONE (14:05)
[2023-12-14] MEDS ORDERED: Versed 2 MG/2 ML Injection ONE (14:05)
[2023-12-14] MEDS ORDERED: Lactated Ringers 1,000 ML IV ONE (15:03)
[2023-12-14] MEDS ORDERED: DIPRIVAN 200 MG/20 ML IV ONE (15:18)
[2023-12-14] MEDS ORDERED: MORPHINE SULFATE 2 MG INJ ONE (15:41)
--- NOTE | 2023-12-14 17:14 | XRAY ---
16 seconds of fluoroscopy was used in surgery for a left L4-S1 RFA.
--- NOTE | 2023-12-15 13:25 | XRAY ---
16 seconds of fluoroscopy was used in surgery for a left L4-S1 RFA.
== END 2023-12-14 16:02 | disposition home or self-care (01) ==
LOC: SDC-PAIN 12:45
PROVIDERS: ATTEND Psychiatry & Neurology Pain Medicine
DX: M47.816 Spondylosis without myelopathy or radiculopathy, lumbar region (principal)
CPT/HCPCS: 64635; 64636; 72100; 77002; J1010; J2001; J2250; J2270; J2405; J2704

== ENCOUNTER 2024-03-07 11:05 | Day surgery (SDC) | payer MEDICARE ==
[2024-03-07] MEDS ORDERED: Versed 2 MG/2 ML Injection ONE (12:38)
[2024-03-07] MEDS ORDERED: DIPRIVAN 200 MG/20 ML IV ONE (13:28)
[2024-03-07] MEDS ORDERED: Lactated Ringers 1,000 ML IV ONE (15:29)
--- NOTE | 2024-03-07 15:31 | XRAY ---
Indication: Right piriformis injection. Intraoperative fluoroscopy provided for 12 seconds. Single digital spot image submitted for interpretation demonstrates posterior needle tip projecting over the right piriformis. Small amount of contrast injected for needle tip placement. Correlate with intraoperative findings/report.
--- NOTE | 2024-03-07 16:51 | XRAY ---
12 seconds of fluoroscopy was used in surgery for a right piriformis injection.
== END 2024-03-07 13:58 | disposition home or self-care (01) ==
LOC: SDC-PAIN 11:05
PROVIDERS: ATTEND Psychiatry & Neurology Pain Medicine
DX: M79.18 Myalgia, other site (principal)
CPT/HCPCS: 20553; 72170; 77002; J2250; J2704; Q9966

== ENCOUNTER 2024-05-02 10:46 | Day surgery (SDC) | payer MEDICARE ==
[2024-05-02] MEDS ORDERED: BUPIVACAINE 0.5% VIAL IJ ONE (10:47)
[2024-05-02] MEDS ORDERED: Depo-Medrol 40 MG/ML IM ONE (10:47)
[2024-05-02] MEDS ORDERED: DIPRIVAN 200 MG/20 ML IV ONE (12:47)
--- NOTE | 2024-05-02 14:15 | XRAY ---
Indication: Left shoulder and subacromial bursa injection. Intraoperative fluoroscopy provided for 16 seconds. 2 digital spot image submitted for interpretation demonstrates needle tip projecting over the left glenohumeral joint superiorly. Second needle tip subacromial. Small amount of contrast injected for needle tip placement. Correlate with intraoperative findings/report.
[2024-05-02] MEDS ORDERED: Lactated Ringers 1,000 ML IV ONE (14:36)
--- NOTE | 2024-05-02 15:00 | XRAY ---
16 seconds of fluoroscopy was used in surgery for a left intra-articular shoulder and subacromial bursa injection.
== END 2024-05-02 13:18 | disposition home or self-care (01) ==
LOC: SDC-PAIN 10:46
PROVIDERS: ATTEND Psychiatry & Neurology Pain Medicine
DX: M19.012 Primary osteoarthritis, left shoulder (principal); M75.52 Bursitis of left shoulder
CPT/HCPCS: 20610; 73030; 77002; J2704; Q9966

== ENCOUNTER 2024-08-15 10:02 | Day surgery (SDC) | payer MEDICARE ==
[2024-08-15] MEDS ORDERED: LIDOCAINE HCL 1% AMPUL 5 ML IJ ONE (10:03)
[2024-08-15] MEDS ORDERED: Decadron 4 MG INJ IV ONE (10:03)
[2024-08-15] MEDS ORDERED: Sodium Chloride 0.9(Preservative Free) 10 ML IJ ONE (10:03)
[2024-08-15] MEDS ORDERED: Versed 2 MG/2 ML Injection ONE (11:41)
[2024-08-15] MEDS ORDERED: DIPRIVAN 200 MG/20 ML IV ONE (12:13)
[2024-08-15] MEDS ORDERED: MORPHINE SULFATE 2 MG INJ ONE (12:44)
[2024-08-15] MEDS ORDERED: Hydromorphone 1 mg/ml Injection ONE ×2 (12:57→13:25)
--- NOTE | 2024-08-15 14:52 | XRAY ---
Indication: Right L4-S1 transforaminal DENISE. Intraoperative fluoroscopy provided for 16 seconds. 4 digital spot images submitted for interpretation demonstrates posterior needle tips projecting over expected right L4 and L5 nerve roots. Small amount of contrast injected for needle tip placement. Correlate with intraoperative findings/report.
--- NOTE | 2024-08-15 14:56 | XRAY ---
Indication: Right piriformis injection. Intraoperative fluoroscopy provided for 35 seconds. Single digital spot image submitted for interpretation demonstrates posterior needle tip over right piriformis. Small amount of contrast injected for needle tip placement. Correlate with intraoperative findings/report.
--- NOTE | 2024-08-15 15:00 | XRAY ---
16 seconds of fluoroscopy was used in surgery for a right L4-S1 transforaminal DENISE.
--- NOTE | 2024-08-15 15:01 | XRAY ---
35 seconds of fluoroscopy was used in surgery for a right piriformis injection.
== END 2024-08-15 12:34 | disposition home or self-care (01) ==
LOC: SDC-PAIN 10:02
PROVIDERS: ATTEND Psychiatry & Neurology Pain Medicine
DX: M54.16 Radiculopathy, lumbar region (principal); M79.18 Myalgia, other site
CPT/HCPCS: 72100; 72170; 77002; 77003; J1100; J1171; J2250; J2270; J2704

== ENCOUNTER 2024-12-19 13:10 | Day surgery (SDC) | payer MEDICARE ==
[2024-12-19] MEDS ORDERED: Sodium Chloride 0.9(Preservative Free) 10 ML IJ ONE (13:11)
[2024-12-19] MEDS ORDERED: LIDOCAINE HCL 1% AMPUL 5 ML IJ ONE (13:11)
[2024-12-19] MEDS ORDERED: Depo-Medrol 40 MG/ML IM ONE (13:11)
[2024-12-19] MEDS ORDERED: dexAMETHasone sodium phosphate IJ ONE (13:11)
[2024-12-19] MEDS ORDERED: propofoL IV ONE (16:02)
[2024-12-19] MEDS ORDERED: Lactated Ringers 1,000 ML IV ONE (16:32)
[2024-12-19] MEDS ORDERED: MORPHINE SULFATE 2 MG INJ ONE (16:33)
[2024-12-19] MEDS ORDERED: DILAUDID 0.5 MG/0.5 ML SYRINGE ONE (16:51)
--- NOTE | 2024-12-19 20:15 | XRAY ---
Indication: Caudal DENISE. Intraoperative fluoroscopy provided for 14 seconds. 3 digital spot images submitted for interpretation demonstrates caudal needle tip projecting mid sacrum. Small amount of contrast injected for needle tip placement. Correlate with intraoperative findings/report.
--- NOTE | 2024-12-19 20:20 | XRAY ---
Indication: Right piriformis injection. Intraoperative fluoroscopy provided for 6 seconds. Single digital spot images submitted for interpretation demonstrates posterior needle tips projecting over right piriformis. Small amount of contrast injected for needle tip placement. Correlate with intraoperative findings/report.
--- NOTE | 2024-12-19 21:51 | XRAY ---
6 seconds of fluoroscopy used in surgery for a right piriformis injection.
--- NOTE | 2024-12-19 21:52 | XRAY ---
14 seconds of fluoroscopy used in surgery for a caudal DENISE.
== END 2024-12-19 17:15 | disposition home or self-care (01) ==
LOC: SDC-PAIN 13:10
PROVIDERS: ATTEND Psychiatry & Neurology Pain Medicine
DX: M54.16 Radiculopathy, lumbar region (principal); M79.18 Myalgia, other site
CPT/HCPCS: 20552; 62323; 72170; 72220; 77002; J1100; J1171; J2270; J2704; Q9966

== ENCOUNTER 2025-07-03 10:45 | Day surgery (SDC) | payer MEDICARE ==
[2025-07-03] MEDS ORDERED: methylPREDNISolone acetate IM ONE (10:46)
[2025-07-03] MEDS ORDERED: LIDOCAINE HCL 1% 50 MG/5 ML VL IJ ONE (10:46)
[2025-07-03] MEDS ORDERED: BUPIVACAINE 0.5% VIAL IJ ONE (10:46)
[2025-07-03] MEDS ORDERED: propofoL IV ONE (14:10)
--- NOTE | 2025-07-03 16:32 | XRAY ---
15 seconds of fluoroscopy was used in surgery for a right L4-S1 RFA.
--- NOTE | 2025-07-03 16:40 | XRAY ---
Indication: Right L4-S1 RFA. Intraoperative fluoroscopy provided for 15 seconds. 4 digital spot image submitted for interpretation demonstrates posterior needle tips projecting over expected right L4-S1 nerve roots. Correlate with intraoperative findings/report.
[2025-07-03] MEDS ORDERED: Lactated Ringers 1,000 ML IV ONE (17:04)
== END 2025-07-03 14:47 | disposition home or self-care (01) ==
LOC: SDC-PAIN 10:45
PROVIDERS: ATTEND Psychiatry & Neurology Pain Medicine
DX: M47.817 Spondylosis without myelopathy or radiculopathy, lumbosacral region (principal)

== ENCOUNTER 2025-07-17 14:00 | Day surgery (SDC) | payer MEDICARE ==
[~2025-07-17 14:00] MED LIST changes: -DIPRIVAN 200 MG/20 ML IV ONE; -Ketamine HCl 50 MG/ML ONE; +Lactated Ringers 1,000 ML IV ONE
[2025-07-17] MEDS ORDERED: BUPIVACAINE 0.5% VIAL IJ ONE (14:01)
[2025-07-17] MEDS ORDERED: methylPREDNISolone acetate IM ONE (14:01)
[2025-07-17] MEDS ORDERED: LIDOCAINE HCL 1% 50 MG/5 ML VL IJ ONE (14:01)
[2025-07-17] MEDS ORDERED: propofoL IV ONE (14:08)
[2025-07-17] MEDS ORDERED: DILAUDID 0.5 MG/0.5 ML SYRINGE ONE (14:30)
--- NOTE | 2025-07-17 15:12 | XRAY ---
Indication: Left L4-S1 RFA. Intraoperative fluoroscopy provided for 27 seconds. 3 digital spot image submitted for interpretation demonstrates posterior needle tips projecting over expected left L4-S1 nerve roots. Correlate with intraoperative findings/report.
--- NOTE | 2025-07-17 15:17 | XRAY ---
27 seconds of fluoroscopy was used in surgery for a left L4-S1 RFA.
== END 2025-07-17 14:55 | disposition home or self-care (01) ==
LOC: SDC-PAIN 14:00
PROVIDERS: ATTEND Psychiatry & Neurology Pain Medicine
DX: M47.817 Spondylosis without myelopathy or radiculopathy, lumbosacral region (principal)